=== PATIENT | female | born 1965 | race Two or more races ===

== ENCOUNTER 2023-05-24 13:44 | Emergency (ER) | payer OTHER ==
[~2023-05-24] VITALS: Ht 167.6 cm; Wt 84.0 kg
[2023-05-24 13:51] VITALS: BP 138/88; RESP 18; O2SAT 95
[2023-05-24 14:02] VITALS: PULSE 95
== END 2023-05-24 15:53 | disposition left against medical advice (07) ==
LOC: EDBD 13:44 → ER 13:44
DX: R53.1 Weakness (principal); Z53.21 Procedure and treatment not carried out due to patient leaving prior to being seen by health care provider
CPT/HCPCS: 93005